=== PATIENT | female | born 1995 | race Caucasian/White ===

== ENCOUNTER 2023-03-25 07:31 | Outpatient (CLI) | payer OTHER | END 2023-03-25 07:35 | disposition home or self-care (01) | LOC: RAD 07:31 | PROVIDERS: ATTEND Colon & Rectal Surgery | DX: K59.09 Other constipation (principal) ==

== ENCOUNTER 2023-05-15 12:00 | Inpatient (IN) | payer OTHER ==
[2023-05-21 20:08] LABS: HEMATOCRIT 36.1 % (36.0-45.00); HEMOGLOBIN 12.6 g/dL (12.0-15.00); MEAN CELL VOLUME 92.1 fL (80.00-100.00); MEAN CORPUSCULAR HEMOGLOBIN 32.2 pg (27.00-32.0); PLATELET COUNT 188 K/uL (150-450); RED BLOOD COUNT 3.92 M/uL (4.00-6.00); RED CELL DISTRIBUTION WIDTH 12.7 % (11.5-14.5)
[2023-05-22 06:53] LABS: CALCIUM 8.3 mg/dL (8.5-10.1); CREATININE SERUM 0.6 mg/dL (0.55-1.02); GFR 118.19; PHOSPHOROUS 3.1 mg/dL (2.5-4.9); POTASSIUM 3.61 mEq/L (3.5-5.1)
[2023-05-22 06:56] LABS: HEMATOCRIT 34.1 % (36.0-45.00); HEMOGLOBIN 12.1 g/dL (12.0-15.00); MEAN CELL VOLUME 90.6 fL (80.00-100.00); MEAN CORPUSCULAR HGB CONC 35.3 g/dl (32.0-36.0); PLATELET COUNT 165 K/uL (150-450); RED BLOOD COUNT 3.77 M/uL (4.00-6.00); RED CELL DISTRIBUTION WIDTH 13.1 % (11.5-14.5)
[2023-05-22 07:52] LABS: MAGNESIUM 1.2 mg/dL (1.8-2.4)
== END 2023-05-23 17:33 | disposition home or self-care (01) | DRG 331 ==
LOC: O/R 05-21 06:58 → SURH 05-21 12:00
PROVIDERS: ADMIT Colon & Rectal Surgery; ATTEND Colon & Rectal Surgery
PROC: 0DBP4ZZ Excision of Rectum, Percutaneous Endoscopic Approach (ICD-10-PCS; 2023-05-21)
PROC: 0DTN4ZZ Resection of Sigmoid Colon, Percutaneous Endoscopic Approach (ICD-10-PCS; principal; 2023-05-21 19:00)
DX: K58.1 Irritable bowel syndrome with constipation (principal); K59.02 Outlet dysfunction constipation

== ENCOUNTER 2024-01-07 23:18 | Emergency (ER) | payer OTHER ==
[~2024-01-07] VITALS: Ht 160 cm; Wt 59.0 kg
[2024-01-08] MEDS ORDERED: PROMETHAZINE HCL 50 MG/ML AMPUL IM STA (00:54)
[2024-01-08] MEDS ORDERED: MEPERIDINE HCL/PF 50 MG/ML VIAL IM STA (00:54)
[2024-01-08] MEDS ORDERED: 0.9 % SODIUM CHLORIDE 1,000 ML IV ONE (01:00)
[2024-01-08] MEDS ORDERED: PROMETHAZINE HCL 50 MG/ML AMPUL IM ONE (01:04)
[2024-01-08] MEDS ORDERED: DIATRIZOATE MEGLUMINE, SODIUM 30 ML BOTTLE ONE (01:05)
[2024-01-08 01:42] LABS: PH,URINE 5.5 (5.0-8.0); URINE APPEARANCE Cloudy; URINE BILIRRUBIN Negative (NEGATIVE); URINE BLOOD Negative; URINE COLOR Yellow; URINE GLUCOSE Negative (NEGATIVE); URINE LEUKOCYTE Negative; URINE NITRATE Negative; URINE PROTEIN Negative (NEGATIVE); URINE UROBILINOGEN 0.2 E.U./dl
[2024-01-08 01:43] LABS: URINE BACTERIA 6599.6 uL (0.0-1933); URINE EPITHELIAL CELLS 126.3 uL (0.0-38.8); URINE RBC 6.8 uL (0.0-20.8); URINE WBC 69.2 uL (0.0-23.2)
[2024-01-08 01:53] LABS: INR 1.04; PARTIAL THROMBOPLASTIN TIME 30.5 SECONDS (22.0-34.0); PROTHROMBIN TIME 10.9 SECONDS (9.0-11.5)
[2024-01-08 01:56] LABS: HEMOGLOBIN 13.4 g/dL (12.0-15.00); MEAN CELL VOLUME 92.1 fL (80.00-100.00); MEAN CORPUSCULAR HEMOGLOBIN 32.6 pg (27.00-32.0); MEAN CORPUSCULAR HGB CONC 35.4 g/dl (32.0-36.0); PLATELET COUNT 156 K/uL (150-450); RED BLOOD COUNT 4.12 M/uL (4.00-6.00); RED CELL DISTRIBUTION WIDTH 12.5 % (11.5-14.5)
[2024-01-08 03:31] LABS: URINE CAST 0.15 uL (0.0-1.40); URINE KETONE 80 (NEGATIVE); URINE MUCUS MODERATE
[2024-01-08 03:32] LABS: ALBUMIN 4.1 gm/dL (3.4-5.0); ANION GAP 14 (10.0-20.0); BLOOD UREA NITROGEN 13 mg/dL (7-18); BUN CREA RATIO 22 (7.0-25.0); CARBON DIOXIDE 21 mEq/L (21-32); CHLORIDE 112 mmol/L (98-107); GFR 118.19; GLOBULINA 3.1 G/DL (2.4-3.5); GLUCOSE FASTING 84 mg/dL (65-100); OSMOLALITY SERUM 284 MOSM/KG (275-295); POTASSIUM 3.62 mEq/L (3.5-5.1); SODIUM 143 mmol/L (136-145); TOTAL PROTEIN 7.2 gm/dL (6.4-8.2)
[2024-01-08 03:33] LABS: ALKALINE PHOSPHATASE 52 U/L (50-136); BILIRUBIN TOTAL 0.96 mg/dL (0.3-1.2); BILIRUBIN,CONJUGATED 0.26 mg/dL (0.0-0.2)
[2024-01-08 03:34] LABS: AMYLASE 48 U/L (25-115)
[2024-01-08 03:35] LABS: ALT/SGPT 22 U/L (12-78); AST/SGOT 18 U/L (15-37); HCG QUANTITATIVE < 1 mUI/mL (1-3); LIPASE 29 U/L (13-75)
[2024-01-08] MEDS ORDERED: CEFTRIAXONE SODIUM 1,000 MG VIAL ONE (10:43)
[2024-01-08] MEDS ORDERED: CEFTRIAXONE SODIUM 1,000 MG VIAL IV ONE (10:45)
== END 2024-01-08 11:21 ==
LOC: ER 23:18
PROVIDERS: General Practice
DX: N39.0 Urinary tract infection, site not specified (principal)